=== PATIENT | female | born 1940 | race African-American/Black ===

== ENCOUNTER 2023-11-05 13:47 | Inpatient (IN) | payer BC ==
[~2023-11-05] VITALS: Ht 167.6 cm; Wt 61.2 kg
[2023-11-05] VITALS (16 sets, daily range): BP systolic 78–150; BP diastolic 53–104; TEMP 97.9; O2SAT 96–100
[2023-11-05 14:34] LABS: BASOPHILS # (AUTO) 0.1 K/uL (0.0-0.2); BASOPHILS % (AUTO) 0.6 % (0.0-2.0); EOSINOPHILS % (AUTO) 0.1 % (0.0-6.0); HEMATOCRIT 33 % (33-45); HEMOGLOBIN 10.4 g/dL (11.5-14.8); LYMPHOCYTES # (AUTO) 0.7 K/uL (0.8-4.8); LYMPHOCYTES % (AUTO) 3.3 % (20.0-44.0); MEAN CORPUSCULAR HEMOGLOBIN 30 PG (26.0-33.0); MEAN CORPUSCULAR HGB CONC 32 g/dl (31.0-36.0); MEAN CORPUSCULAR VOLUME 92 fL (82-100); MONOCYTES # (AUTO) 1.2 K/uL (0.1-1.30); MONOCYTES % (AUTO) 5.3 % (2.0-12.0); NEUTROPHILS # (AUTO) 19.9 K/uL (1.8-8.9); NEUTROPHILS % (AUTO) 90.7 % (43.0-81.0); PLATELET COUNT (AUTO) 392 K/uL (150-450); RED BLOOD CELL COUNT(AUTO) 3.53 MIL/uL (4.0-5.2); RED CELL DISTRIBUTION WIDTH 22.9 % (11.5-15.0); WHITE BLOOD COUNT (AUTO) 21.9 K/uL (4.3-11.0)
[2023-11-05 14:41] LABS: INR 1.7 (0.91-1.10); PARTIAL THROMBOPLASTIN TIME 28.8 SEC (24.3-34.3); PROTHROMBIN TIME 17.4 SECS (9.2-11.1)
[2023-11-05 14:43] LABS: CALCIUM, SERUM 9.5 mg/dL (8.5-10.1); CARBON DIOXIDE 31 mmol/L (21-32); CHLORIDE 101 mmol/L (98-107); CREATININE 2.2 mg/dL (0.6-1.3); GLUCOSE 108 mg/dL (74-106); POTASSIUM 3.6 mmol/L (3.5-5.1); SODIUM SERUM 144 mmol/L (136-145); UREA NITROGEN, BLOOD 52 mg/dL (7-18)
[2023-11-05 14:51] LABS: ABG BASE EXCESS 7.3 mmol/L; ABG OXYGEN SATURATION 97.7 % (92.0-98.5); ABG PCO2 42.4 mmHg (35.0-45.0); ABG PH 7.487 (7.350-7.450); ABG PO2 105.6 mmHg (75.0-100.0); ABG TOTAL HEMOGLOBIN 10.6 G/dL (12.0-16.0); COHb 0.6 % (0.5-1.5); MetHb 0.2 % (0.0-1.5); O2Hb 96.9 % (94.0-97.0); SITE, ABG Right Brachial
[2023-11-05 14:57] LABS: LACTIC ACID 2.6 mmol/L (0.4-2.0)
[2023-11-05 14:58] LABS: ALANINE AMINOTRANSFERASE 685 U/L (12-78); ALBUMIN 2.9 g/dL (3.4-5.0); ALKALINE PHOSPHATASE 155 U/L (46-116); ASPARTATE AMINOTRANSFERASE 633 U/L (15-37); BILIRUBIN,DIRECT 1.6 mg/dL (0.0-0.2); BILIRUBIN,TOTAL 2.7 mg/dL (0.2-1.0); NT-PRO BNP > 25000 pg/mL (0-125); TOTAL PROTEIN, SERUM 7.7 g/dL (6.4-8.2)
[2023-11-05] MEDS ORDERED: CALC-1143 PO (15:04)
[2023-11-05] MEDS ORDERED: AMLO10TA4 PO (15:04)
[2023-11-05] MEDS ORDERED: MULT-213 PO (15:04)
[2023-11-05] MEDS ORDERED: CYAN100T9 PO (15:04)
[2023-11-05] MEDS ORDERED: ACET-868 PO (15:04)
[2023-11-05] MEDS ORDERED: POVI3780 TP (15:04)
[2023-11-05] MEDS ORDERED: BUPR-319 PO (15:04)
[2023-11-05] MEDS ORDERED: RIVA15TA PO (15:04)
[2023-11-05] MEDS ORDERED: METO100T14 PO (15:04)
[2023-11-05] MEDS ORDERED: AMIO200T5 PO (15:04)
[2023-11-05] MEDS ORDERED: ACET-2605 PO (15:04)
[2023-11-05] MEDS ORDERED: ESCI20TA PO (15:04)
[2023-11-05] MEDS ORDERED: TOLT4CAP PO (15:04)
[2023-11-05] MEDS ORDERED: HYDR-4303 PO (15:04)
[2023-11-05] MEDS: CEFTRIAXONE 1GM BAG (ER ONLY) 50 ML IV ONE (15:13)
[2023-11-05] MEDS: ASPIRIN 300 MG/SUPP.RECT RC ONE (15:18)
[2023-11-05] MEDS: AZITHROMYCIN 500 MG in IV D5W 250 ML IV ONE (15:29)
[2023-11-05] MEDS ORDERED: PROPOFOL 100 ML ONE (15:59)
[2023-11-05] MEDS: ETOMIDATE 2 MG/ML VIAL IV SCH (16:08)
[2023-11-05] MEDS: SUCCINYLCHOLINE CHLORIDE 20 MG/ML VIAL IV SCH (16:08)
[2023-11-05] MEDS: PROPOFOL 100 ML IV PRN (16:10)
[2023-11-05] MEDS ORDERED: MAG HYDROX/AL HYDROX/SIMETH 30 ML UDC PO PRN (16:30)
[2023-11-05] MEDS ORDERED: Z GUARD REMEDY 4 OZ OINT TP PRN (16:30)
[2023-11-05] MEDS ORDERED: ONDANSETRON HCL/PF 4 MG/2 ML VIAL IVP PRN (16:30)
[2023-11-05] MEDS: VANCOMYCIN 1 GM in IV D5W 250 ML IV ONE (16:30)
[2023-11-05] MEDS: PIPERACILLIN /TAZOBACTAM 2.25 G in IV D5W 50 ML IV ONE (16:30)
[2023-11-05] MEDS ORDERED: MAGNESIUM HYDROXIDE 30 ML UDC PO PRN (16:30)
[2023-11-05] MEDS ORDERED: NOREPINEPHRINE 8MG/250ML RTU 250 ML IV ONE (16:49)
[2023-11-05] MEDS ORDERED: NITROGLYCERIN PACKET 1 GM PACKET ONE (16:56)
[2023-11-05] MEDS: METOPROLOL TARTRATE 50 MG TABLET PO SCH (17:00)
[2023-11-05] MEDS: NOREPINEPHRINE 8 MG in IV D5W 242 ML IV PRN (17:00)
[2023-11-05] MEDS ORDERED: FUROSEMIDE 40 MG/4 ML VIAL ONE (17:06)
[2023-11-05] MEDS ORDERED: PIPERACI/TAZO 3.375GM/D5W 50ML PB IV ONE (17:39)
[2023-11-05] MEDS ORDERED: RIVAROXABAN 15 MG TABLET PO SCH (18:00)
[2023-11-05 18:23] LABS: APPEARANCE,URINE CLEAR (CLEAR); BILIRUBIN,URINE 1+ (NEGATIVE); BLOOD, URINE NEGATIVE Ery/uL (NEGATIVE); COLOR,URINE YELLOW (YELLOW); KETONES,URINE TRACE mg/dL (NEGATIVE); LEUKOCYTE ESTERASE ,URINE NEGATIVE (NEGATIVE); NITRITE, URINE NEGATIVE (NEGATIVE); PROTEIN,URINE 1+ mg/dl (NEGATIVE); UGLUCOSE NEGATIVE (NEGATIVE)
[2023-11-05 18:36] LABS: WBC,URINE NONE SEEN /HPF (0-3)
[2023-11-05 18:37] LABS: ADD URINE CULTURE YES; BACTERIA,URINE Moderate /HPF (None Seen); COARSE GRANULAR CASTS,URINE Few /LPF (None Seen); SQUAMOUS EPITHELIAL CELL,UR Moderate /HPF (None Seen)
[2023-11-05 18:38] LABS: RBC,URINE 0-2 /HPF (0-2)
[2023-11-05] MEDS: FUROSEMIDE 40 MG/4 ML VIAL IV SCH (20:27)
[2023-11-05] MEDS: HEPARIN SODIUM, PORCINE 1000 UNIT/1 ML VIAL IV ONE (21:51)
[2023-11-05] MEDS: HEPARIN SODIUM, PORCINE 5000 UNITS/1 ML VIAL ONE (21:52)
[2023-11-05] MEDS: HEPARIN INFUSION/D5W 500 ML IV PRN (21:57)
[2023-11-05] MEDS ORDERED: ZOLPIDEM TARTRATE 5 MG TABLET PO PRN (22:00)
[2023-11-05 23:14] LABS: ABG BASE EXCESS 4.2 mmol/L; ABG OXYGEN SATURATION 73.9 % (92.0-98.5); ABG PCO2 36.3 mmHg (35.0-45.0); ABG PH 7.498 (7.350-7.450); ABG PO2 41.1 mmHg (75.0-100.0); ABG TOTAL HEMOGLOBIN 9.9 G/dL (12.0-16.0); COHb 0.3 % (0.5-1.5); MetHb 0.3 % (0.0-1.5); O2Hb 73.5 % (94.0-97.0); PEEP,BG 12 cm H2O; SITE, ABG Right Brachial; VT, ABG 500 mL
[2023-11-06] VITALS (96 sets, daily range): BP systolic 85–144; BP diastolic 51–100; TEMP 98.3–99.8; O2SAT 52–100
[2023-11-06] MEDS: ZOSYN IVPB 2.25 G in IV D5W 50ml IV SCH (00:01)
[2023-11-06 05:26] LABS: BASOPHILS # (AUTO) 0.1 K/uL (0.0-0.2); BASOPHILS % (AUTO) 0.3 % (0.0-2.0); EOSINOPHILS # (AUTO) 0.2 K/uL (0.0-0.7); EOSINOPHILS % (AUTO) 0.9 % (0.0-6.0); HEMATOCRIT 32 % (33-45); HEMOGLOBIN 10.3 g/dL (11.5-14.8); LYMPHOCYTES # (AUTO) 1.2 K/uL (0.8-4.8); LYMPHOCYTES % (AUTO) 5.3 % (20.0-44.0); MEAN CORPUSCULAR HEMOGLOBIN 30 PG (26.0-33.0); MEAN CORPUSCULAR HGB CONC 33 g/dl (31.0-36.0); MEAN CORPUSCULAR VOLUME 93 fL (82-100); MONOCYTES # (AUTO) 0.9 K/uL (0.1-1.30); NEUTROPHILS # (AUTO) 19.9 K/uL (1.8-8.9); NEUTROPHILS % (AUTO) 89.5 % (43.0-81.0); PLATELET COUNT (AUTO) 403 K/uL (150-450); RED BLOOD CELL COUNT(AUTO) 3.41 MIL/uL (4.0-5.2); RED CELL DISTRIBUTION WIDTH 23.2 % (11.5-15.0); WHITE BLOOD COUNT (AUTO) 22.3 K/uL (4.3-11.0)
[2023-11-06 06:03] LABS: ALANINE AMINOTRANSFERASE 522 U/L (12-78); ALBUMIN 2.5 g/dL (3.4-5.0); ALKALINE PHOSPHATASE 141 U/L (46-116); ASPARTATE AMINOTRANSFERASE 367 U/L (15-37); BILIRUBIN,TOTAL 1.9 mg/dL (0.2-1.0); CALCIUM, SERUM 8.5 mg/dL (8.5-10.1); CARBON DIOXIDE 30 mmol/L (21-32); CHLORIDE 99 mmol/L (98-107); CREATININE 2.2 mg/dL (0.6-1.3); GLUCOSE 127 mg/dL (74-106); MAGNESIUM 2.1 mg/dL (1.8-2.4); PHOSPHORUS 3.9 mg/dL (2.5-4.9); POTASSIUM 3.1 mmol/L (3.5-5.1); SODIUM SERUM 139 mmol/L (136-145); TOTAL PROTEIN, SERUM 7.1 g/dL (6.4-8.2); UREA NITROGEN, BLOOD 53 mg/dL (7-18)
[2023-11-06 06:04] LABS: INR 1.45 (0.91-1.10); PARTIAL THROMBOPLASTIN TIME 55.3 SEC (24.3-34.3)
[2023-11-06 06:12] LABS: CHOLESTEROL 101 mg/dL (<200); HDL CHOLESTEROL 42 mg/dL (40-60); LDL 39 mg/dL (0-99); TRIGLYCERIDES 112 mg/dL (30-150)
[2023-11-06 07:11] LABS: LYMPHOCYTES % (MANUAL) 7 % (16-48); MONOCYTES % (MANUAL) 7 % (0-11.0); NEUTROPHILS % (MANUAL) 86 (42-76)
[2023-11-06 07:13] LABS: PLATELET ESTIMATE ADEQUATE
[2023-11-06 07:16] LABS: ANISOCYTOSIS 1+
[2023-11-06] MEDS: PANTOPRAZOLE 40 MG VIAL IV SCH (08:18)
[2023-11-06] MEDS: CYANOCOBALAMIN 100 MCG TABLET PO SCH (08:18)
[2023-11-06] MEDS: AMLODIPINE BESYLATE 10 MG TABLET PO SCH (08:18)
[2023-11-06] MEDS: POTASSIUM CHLORIDE 20 MEQ POWDER PACKET GT SCH (09:00)
[2023-11-06] MEDS ORDERED: POTASSIUM CHLORIDE 20 MEQ TAB.PRT.SR PO SCH (09:00)
[2023-11-06] MEDS: JEVITY 1.2 CAL 1,000 ML BOTTLE GT PRN (10:18)
[2023-11-06 11:20] LABS: ABG BASE EXCESS 9.4 mmol/L; ABG OXYGEN SATURATION 98.8 % (92.0-98.5); ABG PCO2 38.9 mmHg (35.0-45.0); ABG PH 7.541 (7.350-7.450); ABG PO2 129.5 mmHg (75.0-100.0); ABG TOTAL HEMOGLOBIN 10.5 G/dL (12.0-16.0); AaDO2 544.6 mmHg; COHb 0.3 % (0.5-1.5); MetHb 0.1 % (0.0-1.5); O2Hb 98.4 % (94.0-97.0); SITE, ABG Right Radial
[2023-11-06 11:21] LABS: ABG BASE EXCESS 6.3 mmol/L; ABG OXYGEN SATURATION 99.5 % (92.0-98.5); ABG PCO2 39.5 mmHg (35.0-45.0); ABG PH 7.498 (7.350-7.450); ABG PO2 223.6 mmHg (75.0-100.0); ABG TOTAL HEMOGLOBIN 10.2 G/dL (12.0-16.0); AaDO2 377.6 mmHg; MetHb 0.1 % (0.0-1.5); O2Hb 99.4 % (94.0-97.0); SITE, ABG Right Brachial
[2023-11-06 11:21] LABS: ABG BASE EXCESS 1.6 mmol/L; ABG OXYGEN SATURATION 84.7 % (92.0-98.5); ABG PCO2 32.9 mmHg (35.0-45.0); ABG PH 7.492 (7.350-7.450); ABG PO2 48.7 mmHg (75.0-100.0); ABG TOTAL HEMOGLOBIN 10.7 G/dL (12.0-16.0); AaDO2 631.4 mmHg; COHb 0.1 % (0.5-1.5); MetHb 0.3 % (0.0-1.5); O2Hb 84.4 % (94.0-97.0); PEEP,BG 10 cm H2O; SITE, ABG Right Radial; VENT MODE, BG AC @ 100%; VT, ABG 500 mL
[2023-11-06 13:58] LABS: ABG BASE EXCESS 1.7 mmol/L; ABG OXYGEN SATURATION 78.3 % (92.0-98.5); ABG PCO2 31.9 mmHg (35.0-45.0); ABG PH 7.502 (7.350-7.450); ABG PO2 42.5 mmHg (75.0-100.0); ABG TOTAL HEMOGLOBIN 11.1 G/dL (12.0-16.0); AaDO2 638.6 mmHg; COHb 0.3 % (0.5-1.5); MetHb 0.2 % (0.0-1.5); O2Hb 77.9 % (94.0-97.0); SITE, ABG Right Radial
[2023-11-06 16:14] LABS: ABG BASE EXCESS 0.5 mmol/L; ABG OXYGEN SATURATION 82.4 % (92.0-98.5); ABG PH 7.473 (7.350-7.450); ABG TOTAL HEMOGLOBIN 11.1 G/dL (12.0-16.0); COHb 0.3 % (0.5-1.5); O2Hb 82.2 % (94.0-97.0); SITE, ABG Right Radial
[2023-11-06 17:43] LABS: APPEARANCE,URINE SLIGHTLY CLOUDY (CLEAR); BILIRUBIN,URINE NEGATIVE (NEGATIVE); BLOOD, URINE NEGATIVE Ery/uL (NEGATIVE); COLOR,URINE YELLOW (YELLOW); KETONES,URINE NEGATIVE (NEGATIVE); LEUKOCYTE ESTERASE ,URINE NEGATIVE (NEGATIVE); NITRITE, URINE NEGATIVE (NEGATIVE); PROTEIN,URINE NEGATIVE (NEGATIVE); UGLUCOSE NEGATIVE (NEGATIVE)
[2023-11-06 18:09] LABS: CREATININE, URINE 56.7 MG/DL (30.0-125.0); URINE TOTAL PROTEIN 29.6 mg/dL (0-11.9)
[2023-11-06 18:13] LABS: ADD URINE CULTURE NO; BACTERIA,URINE None seen /HPF (None Seen); RBC,URINE 0-2 /HPF (0-2); URIC ACID CRYSTALS,URINE Moderate /HPF (None Seen); URINE AMORPHOUS URATE Few /HPF (None Seen); WBC,URINE 0-2 /HPF (0-3)
[2023-11-06 18:18] LABS: EOSINOPHIL,URINE None Seen
[2023-11-06 19:46] LABS: ABG BASE EXCESS -6.1 mmol/L; ABG OXYGEN SATURATION 66.7 % (92.0-98.5); ABG PCO2 41.6 mmHg (35.0-45.0); ABG PH 7.299 (7.350-7.450); ABG PO2 41.4 mmHg (75.0-100.0); ABG TOTAL HEMOGLOBIN 11.3 G/dL (12.0-16.0); COHb 0.3 % (0.5-1.5); O2Hb 66.5 % (94.0-97.0); SITE, ABG Right Radial
[2023-11-06] MEDS: ACETAMINOPHEN 325 MG TABLET PO PRN (20:57)
[2023-11-06 22:25] LABS: ABG OXYGEN SATURATION 90.7 % (92.0-98.5); ABG PCO2 34.1 mmHg (35.0-45.0); ABG PH 7.339 (7.350-7.450); ABG PO2 66.9 mmHg (75.0-100.0); ABG TOTAL HEMOGLOBIN 12.1 G/dL (12.0-16.0); COHb 0.3 % (0.5-1.5); MetHb 0.2 % (0.0-1.5); O2Hb 90.2 % (94.0-97.0); SITE, ABG Right Radial
[2023-11-07] VITALS (42 sets, daily range): BP systolic 47–147; BP diastolic 29–101; TEMP 98.5–99.7; O2SAT 87–96
[2023-11-07 03:55] LABS: BASOPHILS # (AUTO) 0.1 K/uL (0.0-0.2); BASOPHILS % (AUTO) 0.4 % (0.0-2.0); EOSINOPHILS % (AUTO) 0.1 % (0.0-6.0); HEMATOCRIT 32 % (33-45); HEMOGLOBIN 10.4 g/dL (11.5-14.8); LYMPHOCYTES # (AUTO) 0.9 K/uL (0.8-4.8); LYMPHOCYTES % (AUTO) 3.5 % (20.0-44.0); MEAN CORPUSCULAR HEMOGLOBIN 29 PG (26.0-33.0); MEAN CORPUSCULAR HGB CONC 32 g/dl (31.0-36.0); MEAN CORPUSCULAR VOLUME 92 fL (82-100); MONOCYTES # (AUTO) 1.3 K/uL (0.1-1.30); MONOCYTES % (AUTO) 4.7 % (2.0-12.0); NEUTROPHILS # (AUTO) 24.6 K/uL (1.8-8.9); NEUTROPHILS % (AUTO) 91.3 % (43.0-81.0); PLATELET COUNT (AUTO) 366 K/uL (150-450); RED BLOOD CELL COUNT(AUTO) 3.53 MIL/uL (4.0-5.2); RED CELL DISTRIBUTION WIDTH 22.7 % (11.5-15.0); WHITE BLOOD COUNT (AUTO) 26.9 K/uL (4.3-11.0)
[2023-11-07 04:13] LABS: INR 1.78 (0.91-1.10); PARTIAL THROMBOPLASTIN TIME 59.2 SEC (24.3-34.3); PROTHROMBIN TIME 18.2 SECS (9.2-11.1)
[2023-11-07 04:25] LABS: CREATINE KINASE, TOTAL 77 U/L (26-192)
[2023-11-07 04:31] LABS: ALANINE AMINOTRANSFERASE 1552 U/L (12-78); ALBUMIN 2.3 g/dL (3.4-5.0); ALKALINE PHOSPHATASE 176 U/L (46-116); ASPARTATE AMINOTRANSFERASE > 1000 U/L (15-37); BILIRUBIN,DIRECT 2.1 mg/dL (0.0-0.2); BILIRUBIN,TOTAL 2.6 mg/dL (0.2-1.0); CALCIUM, SERUM 8.4 mg/dL (8.5-10.1); CARBON DIOXIDE 27 mmol/L (21-32); CHLORIDE 96 mmol/L (98-107); CREATININE 3.4 mg/dL (0.6-1.3); GLUCOSE 100 mg/dL (74-106); LACTIC ACID 5.5 mmol/L (0.4-2.0); PHOSPHORUS 6.2 mg/dL (2.5-4.9); POTASSIUM 4.6 mmol/L (3.5-5.1); SODIUM SERUM 138 mmol/L (136-145); TOTAL PROTEIN, SERUM 6.8 g/dL (6.4-8.2); UREA NITROGEN, BLOOD 64 mg/dL (7-18)
[2023-11-07 05:33] LABS: BAND % (MANUAL) 1 % (0.0-5.0); LYMPHOCYTES % (MANUAL) 2 % (16-48); MONOCYTES % (MANUAL) 3 % (0-11.0); NEUTROPHILS % (MANUAL) 94 (42-76)
[2023-11-07 05:34] LABS: ANISOCYTOSIS 1+; OVALOCYTES 1+; PLATELET ESTIMATE ADEQUATE
[2023-11-07 09:07] LABS: ABG BASE EXCESS -4.1 mmol/L; ABG OXYGEN SATURATION 92.6 % (92.0-98.5); ABG PCO2 34.9 mmHg (35.0-45.0); ABG PH 7.383 (7.350-7.450); ABG TOTAL HEMOGLOBIN 11.8 G/dL (12.0-16.0); AaDO2 607.1 mmHg; COHb 0.3 % (0.5-1.5); MetHb 0.4 % (0.0-1.5); PEEP,BG 17 cm H2O; SITE, ABG Right Radial; VENT MODE, BG AC 100%; VT, ABG 500 mL
[2023-11-09 00:06] LABS: PTH, INTACT 521 pg/mL (15-65)
[2023-11-09 08:07] LABS: *SPE A/G RATIO 0.7 (0.7-1.7); *SPE ALBUMIN 2.6 g/dL (2.9-4.4); *SPE ALPHA-1-GLOBULIN 0.5 g/dL (0.0-0.4); *SPE ALPHA-2-GLOBULIN 0.6 g/dL (0.4-1.0); *SPE GLOBULIN, TOTAL 3.8 g/dL (2.2-3.9); *SPE M-SPIKE Not Observed g/dL (Not Observed); *SPE PROTEIN TOTAL 6.4 g/dL (6.0-8.5); *SPEGAMMA GLOBULIN 1.7 g/dL (0.4-1.8)
== END 2023-11-07 15:19 | DRG 871 ==
LOC: ER 13:52 → ICU 16:29
PROVIDERS: ADMIT Nurse Practitioner Acute Care; ATTEND Nurse Practitioner Acute Care
PROC: 5A1945Z Respiratory Ventilation, 24-96 Consecutive Hours (ICD-10-PCS; principal; 2023-11-05)
PROC: 0BH17EZ Insertion of Endotracheal Airway into Trachea, Via Natural or Artificial Opening (ICD-10-PCS; 2023-11-05)
PROC: 5A09357 Assistance with Respiratory Ventilation, Less than 24 Consecutive Hours, Continuous Positive Airway Pressure (ICD-10-PCS; 2023-11-05)
PROC: 02HV33Z Insertion of Infusion Device into Superior Vena Cava, Percutaneous Approach (ICD-10-PCS; 2023-11-06)
PROC: B548ZZA Ultrasonography of Superior Vena Cava, Guidance (ICD-10-PCS; 2023-11-06)
DX: A41.9 Sepsis, unspecified organism (principal); I21.4 Non-ST elevation (NSTEMI) myocardial infarction; I50.33 Acute on chronic diastolic (congestive) heart failure; J96.01 Acute respiratory failure with hypoxia; N17.0 Acute kidney failure with tubular necrosis; R65.21 Severe sepsis with septic shock; K72.00 Acute and subacute hepatic failure without coma; J15.9 Unspecified bacterial pneumonia; D68.59 Other primary thrombophilia; E87.20 Acidosis, unspecified; J93.9 Pneumothorax, unspecified; E78.5 Hyperlipidemia, unspecified; I11.0 Hypertensive heart disease with heart failure; D64.9 Anemia, unspecified; I48.0 Paroxysmal atrial fibrillation; R74.01 Elevation of levels of liver transaminase levels; Z79.01 Long term (current) use of anticoagulants; Z91.81 History of falling; J43.9 Emphysema, unspecified
CPT/HCPCS: 31720; 36415; 36600; 71045-TC; 76700-TC; 80048-TC; 80053-TC; 80061-TC; 80076-TC; 81001; 82550-TC; 82570-TC; 82803-TC; 82962-TC; 83605-TC; 83735-TC; 83880; 83970; 84100-TC; 84155; 84165; 84300-TC; 84443-TC; 84484-TC; 85025-TC; 85378-TC; 85730-TC; 87040-TC; 87086-TC; 93307-TC; 93970-TC; 94003-TC; 94640-TC; 94799-TC; 99082-TC; A4223; C9113; G0378; J0456; J0696; J1644; J1940; J2543; J3370; J3490; J7030; J7050; J7060